=== PATIENT | female | born 1960 | race Caucasian/White ===

== ENCOUNTER 2016-03-10 14:36 | Emergency (ER) | payer BC ==
[~2016-03-10] VITALS: Ht 160 cm; Wt 74.7 kg
[~2016-03-10 14:36] MED LIST: ADVAIR 100-501 EACH IH; ADVAIR 100/501 DISK IH; ADVAIR 250-501 EACH IH; ADVAIR 250/501 DISK IH; ALBUTEROL SULF8.5 GM IH; ALBUTEROL17 G1 IH; ALPRAZOLAM0.25 MG PO; ANALGESIC325 M1 PO; ASPIR 8181 MG PO; ECOTRIN325 MG PO; HYDROCODONE-AP1 EACH PO; IMDUR120 MG PO; IMDUR30 MG PO; LIPITOR40 MG PO; LIPITOR80 MG PO; METOPROLOL SUCC50 MG PO; NAPROSYN500 MG PO; NITROGLYCERIN0.4 MG SL; NITROQUICK0.4 MG SL; NORCO 7.5/321 TABLET PO; NORVASC2.5 MG PO; PLAVIX75 MG PO; PRILOSEC20 MG PO; PROVENTIL,200 INHALA IH; SIMVASTATIN80 MG PO; TOPROL XL25 MG PO; VALIUM5 MG PO
[2016-03-10 14:50] VITALS: BP 125/67
== END 2016-03-10 16:48 | disposition left against medical advice (07) ==
LOC: EME 14:36
DX: R07.9 Chest pain, unspecified (principal); R51 Headache; Z95.1 Presence of aortocoronary bypass graft; Z95.5 Presence of coronary angioplasty implant and graft; Z53.21 Procedure and treatment not carried out due to patient leaving prior to being seen by health care provider
CPT/HCPCS: 71020; 80048; 84484; 85027; 93005